=== PATIENT | female | born 2000 | race Caucasian/White ===

== ENCOUNTER 2021-03-01 19:01 | Emergency (ER) | payer OTHER ==
[~2021-03-01 19:01] MED LIST: CIPRO500 MG PO; COLACE 100MG C100 MG PO; FLAGYL500 MG PO; NAPROSYN500 MG PO; NORCO 5-325 TA1 EACH PO; NORFLEX 100 MG100 MG PO; OMNICEF 300 MG300 MG PO; OXYCODONE HCL5 MG PO; ZOFRAN4 MG PO
[2021-03-01 19:45] LABS: HEMOGLOBIN 16.5 gm/dl (12.3-15.3); RED BLOOD COUNT 4.9 M/UL (4.00-5.10); WHITE BLOOD COUNT 13.5 K/UL (4.5-11.0)
[2021-03-01 20:01] LABS: BUN/CREATININE RATIO 20 (0-10)
[2021-03-01] MEDS ORDERED: IBUPROFEN800 MG PO (21:21)
[2021-03-01] MEDS ORDERED: ZOFRAN4 MG PO (21:21)
[2021-03-01] MEDS ORDERED: CEFUROXIME500 MG PO (21:21)
== END 2021-03-01 21:47 | disposition home or self-care (01) ==
LOC: ER1 19:01
PROVIDERS: Preventive Medicine Occupational Medicine
DX: K52.9 Noninfective gastroenteritis and colitis, unspecified (principal); N39.0 Urinary tract infection, site not specified; Z20.822 Contact with and (suspected) exposure to COVID-19; F17.200 Nicotine dependence, unspecified, uncomplicated
CPT/HCPCS: 0240U; 71045; 80053; 81001; 83605; 83690; 84703; 85025; 85652; 86140; 87077; 87086; 87186; 96374; 96375; 99284; J1170; Q9967

== ENCOUNTER 2021-05-22 19:08 | Emergency (ER) | payer OTHER ==
[~2021-05-22 19:08] MED LIST changes: +CEFUROXIME500 MG PO; +IBUPROFEN800 MG PO
[2021-05-22] MEDS ORDERED: CYCLOBENZAPRINE5 MG PO (21:51)
[2021-05-22] MEDS ORDERED: NAPROSYN500 MG PO (21:51)
== END 2021-05-22 22:08 | disposition home or self-care (01) ==
LOC: ER1 19:08
DX: S09.90XA Unspecified injury of head, initial encounter (principal); S16.1XXA Strain of muscle, fascia and tendon at neck level, initial encounter; S29.012A Strain of muscle and tendon of back wall of thorax, initial encounter; S39.012A Strain of muscle, fascia and tendon of lower back, initial encounter; F17.290 Nicotine dependence, other tobacco product, uncomplicated; V49.40XA Driver injured in collision with unspecified motor vehicles in traffic accident, initial encounter; Y92.410 Unspecified street and highway as the place of occurrence of the external cause
CPT/HCPCS: 70450; 72125; 72128; 72131; 84703; 99284

== ENCOUNTER 2021-07-04 02:38 | Emergency (ER) | payer OTHER ==
[~2021-07-04 02:38] MED LIST changes: +CYCLOBENZAPRINE5 MG PO
[2021-07-04] MEDS ORDERED: CEFUROXIME500 MG PO (04:32)
[2021-07-04] MEDS ORDERED: IBUPROFEN600 MG PO (04:32)
[2021-07-04 05:15] LABS: HEMOGLOBIN 14.2 gm/dl (12.3-15.3); RED BLOOD COUNT 4.42 M/UL (4.00-5.10); WHITE BLOOD COUNT 5.9 K/UL (4.5-11.0)
[2021-07-04 05:58] LABS: BUN/CREATININE RATIO 15 (0-10)
== END 2021-07-04 06:25 | disposition home or self-care (01) ==
LOC: ER1 02:38
PROVIDERS: Physician Assistant
DX: U07.1 COVID-19 (principal); J40 Bronchitis, not specified as acute or chronic; F17.290 Nicotine dependence, other tobacco product, uncomplicated; Z90.89 Acquired absence of other organs; N39.0 Urinary tract infection, site not specified
CPT/HCPCS: 71045; 80048; 81001; 84703; 85025; 87077; 87081; 87086; 87186; 87880; 99284; M0243; U0002

== ENCOUNTER 2021-10-31 00:57 | Emergency (ER) | payer OTHER ==
[~2021-10-31 00:57] MED LIST changes: +IBUPROFEN600 MG PO
[2021-10-31 02:13] LABS: HEMOGLOBIN 14.8 gm/dl (12.3-15.3); RED BLOOD COUNT 4.62 M/UL (4.00-5.10); WHITE BLOOD COUNT 10.4 K/UL (4.5-11.0)
[2021-10-31 02:30] LABS: BUN/CREATININE RATIO 16 (0-10)
== END 2021-10-31 04:00 | disposition home or self-care (01) ==
LOC: ER1 00:57
PROVIDERS: Family Medicine
DX: R10.2 Pelvic and perineal pain (principal); Z20.822 Contact with and (suspected) exposure to COVID-19
CPT/HCPCS: 0240U; 80053; 81001; 83690; 84703; 85025; 96374; 96375; 99284; J1885; J2405; Q9967